=== PATIENT | female | born 1965 | race Caucasian/White ===

== ENCOUNTER 2016-11-02 08:56 | Outpatient (CLI) | payer OTHER ==
--- NOTE | 2016-11-02 13:49 | DIAGNOSTIC IMAGING REPORT ---
PROCEDURE: MG B/L IMPLANTS - SCREENING INDICATION: Screening. Implants. TECHNIQUE: CC and MLO digital views of each breast with CC and MLO digital implant-displacement views. COMPARISON: Compared to 02/04/2015, 11/12/2013 and 06/26/2012. FINDINGS: Computer-aided detection applied. Bilateral subpectoral implants appear intact. The visualized portions of the surrounding breast parenchyma are mildly to moderately dense, but unchanged, and within normal limits. IMPRESSION: 1. Negative mammogram. RESULT CODE: 1- Negative. A. A negative report should not delay biopsy if a dominant or clinically suspicious mass is present. 10-15% of cancers are not identified by x-ray. B. A negative report may reinforce clinical impression. C. Adenosis and dense breasts may obscure an underlying neoplasm. D. False positive reports average 6-10%. E.. A yearly screening mammogram is recommended. A reminder letter will be scheduled.
== END 2016-11-02 23:00 ==
LOC: MAM SRH 08:56
DX: Z12.31 Encounter for screening mammogram for malignant neoplasm of breast (principal)